=== PATIENT | female | born 1990 | race Caucasian/White ===

== ENCOUNTER 2019-06-11 | Observation (INO) ==
--- NOTE | 2019-06-11 00:43 | OB/GYN Progress Note ---
Date of Encounter: 06/11/19 Time of Encounter: 00:11 - Assessment and Plan (1) 37 weeks gestation of Current Visit: Yes Status: Acute Pt presents with c/o pelvic pain and pressure with some occ uc's. No vb or lof. (2) Pelvic pain affecting Current Visit: Yes Status: Acute Qualifiers: Trimester: third trimester Qualified Code(s): O26.893 - Other specified related conditions, third trimester; R10.2 - Pelvic and perineal pain (3) Gestational diabetes Current Visit: No Status: Acute good control Qualifiers: Gestational diabetes mellitus control: diet-controlled Trimester: third trimester Qualified Code(s): O24.410 - Gestational diabetes mellitus in , diet controlled Subjective - Subjective Principal diagnosis: pelvic pressure at 37w3d, gestational diabetes Interval history: 29 yo female at 37w3d presents with progressively worsening abdominal pain and pressure today. No VB or LOF. has been complicated by gestational DM and she has had good control. Today she reports she has drank some decaf fluids and has eaten alot of ice. Objective - Exam FHR: category 1 Auscultation: bilateral: normal Abdomen: Present: gravid Uterus: Present: normal Cervical dilation: 1-2 Cervix effacement: 60 station: -3
[2019-06-11 01:26] LABS: Bilirubin,Urine Negative (Negative); Blood,Urine Negative (Negative); Clarity,Urine Clear (Clear); Color,Urine Yellow (Yellow); Glucose,Urine (UA) Normal (Normal); Ketones,Urine Negative (Negative); Leukocyte Esterase,Urine Negative (Negative); Nitrite,Urine Negative (Negative); Protein,Urine Negative (Neg-Trace); Specific Gravity,Urine 1.027 (1.010-1.025); Urobilinogen,Urine Normal (Normal)
== END 2019-06-11 03:35 | disposition home or self-care (01) ==
LOC: 1NENULAB
PROVIDERS: ADMIT Obstetrics & Gynecology; ATTEND Obstetrics & Gynecology

== ENCOUNTER 2019-06-23 20:32 | Inpatient (IN) ==
[2019-06-23 18:36] LABS: Basophils % 0.3 %; Eosinophils # 0.1 K/mcL (0.0-0.6); Eosinophils % 1.2 %; Hematocrit 35.2 % (35.3-44.9); Hemoglobin 12.1 g/dL (11.5-15.4); Immature Granulocytes % 0.4 % (0-4); Lymphocytes # 1.5 K/mcL (0.6-4.6); Lymphocytes % 13.6 %; Mean Corpuscular HGB Conc 34.4 g/dL (31.6-35.5); Mean Corpuscular Hemoglobin 29.4 pg (28.0-33.3); Mean Corpuscular Volume 85.6 fL (83.0-100.0); Mean Platelet Volume 11.3 fL (9.4-12.4); Monocytes # 0.9 K/mcL (0.0-1.3); Neutrophils # 8.4 K/mcL (1.6-8.9); Platelet Count 268 K/mcL (140-400); Protein/Creatinine Ratio,Urine 0.32 mg/mg (0.00-0.20); Red Blood Count 4.11 M/mcL (3.82-4.97); Red Cell Distribution Width 13.9 % (11.5-14.5); Segmented Neutrophils % 76.5 %
[2019-06-23 18:46] LABS: Alanine Aminotransferase 10 Units/L (7-52); Amphetamine Screen,Urine Negative ng/mL (Cutoff=1000); Aspartate Amino Transferase 11 Units/L (13-39); BUN/Creatinine Ratio 16 (6-26); Barbiturate Screen,Urine Positive ng/mL (Cutoff=200); Benzodiazepines Screen,Urine Positive ng/mL (Cutoff=200); Blood Urea Nitrogen 8 mg/dL (6-20); Cannabinoid Screen,Urine Negative ng/mL (Cutoff = 50); Cocaine Screen,Urine Negative ng/mL (Cutoff= 300); Lactate Dehydrogenase 142 Units/L (140-271); Opiate Screen,Urine Negative ng/mL (Cutoff=300); Phencyclidine Screen,Urine Negative ng/mL (Cutoff=25); Uric Acid 4.9 mg/dL (2.3-7.6); eGFR For African Americans > 60 (> 60); eGFR For Non-African Americans > 60 (> 60)
--- NOTE | 2019-06-23 20:18 | Anesthesia Evaluation PreOp ---
Date of Encounter: 06/23/19 Time of Encounter: 19:38 - Past History Planned Operation: Del, 39wks pre-eclamptic Cardiac History: HTN (previous mag requirement, current bp was 190/103.) Pulmonary History: Denies Any Significant HX CONTRACTING EXECUTIVE History: Other (chronic back pain occ with bilateral radiculopathy down to feet, not dependent in nature and no weakness reported, happens with each .) Other Medical History: Other (BMI 47, anxiety,) Anesthesia History: No Prior Anesthetic Complications, Past Anesthesia (had 2 epidurals one worked, one did not, one del without, pt unsure this time. no other previous issues reported.) Alcohol Use: none Drug use: none Medications and Allergies Buspar 15 mg PO DAILY 01/01/18 [History] Diazepam 5 mg PO DAILY PRN 01/01/18 [History] Zoloft 250 mg PO DAILY 01/01/18 [History] Acetaminophen [Tylenol] 500 mg PO Q6HR PRN #20 tablet 02/09/19 [Rx] Metformin HCl [Fortamet] 1 tab PO BID 06/23/19 [History] Allergy/AdvReac Type Severity Reaction Status Date / Time Amoxicillin [From Amoxil] Allergy Anaphylaxis Verified 06/23/19 18:14 lamotrigine [From Lamictal] Allergy Rash Verified 06/23/19 18:14 Penicillins [PCN] Allergy Anaphylaxis Verified 06/23/19 18:14 cephalexin [From Keflex] AdvReac Rash Verified 06/23/19 18:14 Anesthesia Results - Labs 06/23/19 18:05 06/23/19 18:05 Anesthesia Exam - HEENT Pupil (Motor): Pupils equal Mallampati: III Teeth: Normal Oral Opening: Greater than 3 - CONTRACTING EXECUTIVE LOC: Oriented CONTRACTING EXECUTIVE Motor: Normal RUE, Normal LUE, Normal RLE, Normal LLE, Normal Face CONTRACTING EXECUTIVE Sensory: Normal: RUE, LUE, RLE, LLE, Face - Cardiac Rhythm: Regular Murmur: None - Pulmonary Breath Sounds: bilateral Clear Respiratory Effort: Symmetrical Anesthesia Assess/Plan ASA Score: 3 Level of consciousness: Cooperative, Oriented Anesthetic Plan: General, Spinal, Epidural Monitoring Plan: Standard Monitors Recovery Plan: PACU
[~2019-06-23 20:32] MED LIST: *HR* Nalbuphine 10 MG/ML AMPUL IVP PRN; Epidural Premix (fent/bupiv) 110 ML EP SCH; Famotidine 20 MG/2 ML VIAL IVP PRN; Lidocaine -MPF 1% 2 ML VIAL ONE; Lidocaine 1% 20 ML MDV INFILT PRN; Metoclopramide 10 MG/2 ML VIAL IVP PRN; Naloxone 0.4 MG/ML INJ IVP PRN; Ondansetron 4 MG/2 ML VIAL IVP PRN; miSOPROStol 25 MCG TABLET VG PRN
[2019-06-23] MEDS ORDERED: Ringers Solution, Lactated 1,000 ML IVC SCH (20:45)
--- NOTE | 2019-06-23 21:00 | OB/GYN History & Physical ---
Date of Encounter: 06/23/19 Time of Encounter: 20:53 Assessment and Plan (1) 39 weeks gestation of Current visit: Yes Status: Acute Admit for IOL GBS negative Cytotec and Intracervical Ivy May have nubain/epidural upon request Consider pitocin/arom Anticipate vaginal delivery POC per consult with Dr Weems (2) Pre-eclampsia Current visit: Yes Status: Acute Qualifiers: Trimester: third trimester Qualified Code(s): O14.93 - Unspecified pre- eclampsia, third trimester History of Present Illness Chief complaint: Pre-Eclampsia Induction HPI: Ms. Dash is a 29 year old female at 39 week sand 1 day that presents to triage from the office for a pre-eclampsia evaluation. Labs were normal except for UPC ratio which is elevated. Blood pressures have been elevated in triage also. Patient states she has anxiety and is currently on medication for it. She states her second delivery was complicated by a retained placenta which was removed at the bedside and she lost a lot of blood. She states positive movement. She c/o a headache for 2 days, a 5-6# weight gain over a one week period, and proteinuria. She is a gestational diabetic and is well controlled on metformin BID. Labs: GBS Negative Blood type O+ Hep B NR HIV NR RPR NR Rubella positive Varicella positive Past Med Surg Social Fam HX - Past Medical History Medical history: no medical history Additional medical history: depression Psychiatric history: anxiety, depression, panic disorder, other - Past Surgical History Surgical History: non-contributory, other Additional surgical history: wisdom teeth, tonsils and adenoids, left acl reconstruction - Social History Smoking Status: Former smoker Smokeless Tobacco Status: Yes Alcohol use: none Drug use: none - Family History Mother Adopted: No Family Member Ethnicity: Non- Living Status: Hx Family Cardiac Disorders: No Hx Family Respiratory Disorders: No Hx Family Cancer: Yes (breast cancer) Hx Family GI Disorders: No Hx Family Endocrine Disorder: No Hx Family Neuromuscular Disorders: No Hx Family Neurologic Disorders: No Hx Family HEENT Disorders: No Hx Family Autoimmune Disorders: No Obstetrical History - Pregnancies : 4 Para: 3 Term: 3 : 0 Ab's: 0 Livin Medications and Allergies Buspar 15 mg PO DAILY 01/01/18 [History] Diazepam 5 mg PO DAILY PRN 01/01/18 [History] Zoloft 250 mg PO DAILY 01/01/18 [History] Acetaminophen [Tylenol] 500 mg PO Q6HR PRN #20 tablet 02/09/19 [Rx] Metformin HCl [Fortamet] 1 tab PO BID 06/23/19 [History] Allergy/AdvReac Type Severity Reaction Status Date / Time Amoxicillin [From Amoxil] Allergy Anaphylaxis Verified 06/23/19 18:14 lamotrigine [From Lamictal] Allergy Rash Verified 06/23/19 18:14 Penicillins [PCN] Allergy Anaphylaxis Verified 06/23/19 18:14 cephalexin [From Keflex] AdvReac Rash Verified 06/23/19 18:14 Review of System OB All systems PM: reviewed and no additional remarkable complaints except as stated Exam - Constitutional Constitutional: well developed, well nourished, no acute distress, obese - HEENT HEENT: Normocephaly, Mucus Membranes Moist - Neck Neck exam: full ROM - Lungs Respiratory exam: CTAB - Cardiovascular Cardiovascular exam: RRR, +S1, +S2 - Breasts Breast: bilateral: normal - Abdomen Abdomen: Present: bowel sounds normal, gravid, non tender - Extremities Extremities exam: normal capillary refill, normal inspection, radial pulses palpable and symmetrical Deep Tendon Reflex Grade: 2+ Normal - Vagina Vagina: Present: normal moisture - Cervix Dilation: 1 (1-2) Effacement: 60 Station: -2 Results Result Diagrams: 06/23/19 18:05 06/23/19 18:05 Abnormal lab results Hct 35.2 % (35.3-44.9) L 06/23/19 18:05 Creatinine 0.51 mg/dL (0.60-1.20) L 06/23/19 18:05 AST 11 Units/L (13-39) L 06/23/19 18:05 Protein/Creatinin Ratio 0.32 mg/mg (0.00-0.20) H 06/23/19 18:05 Urine Total Protein 20 mg/dL (1-14) H 06/23/19 18:05 Ur Barbiturates Screen Positive ng/mL (Dmezuf=648) H 06/23/19 18:05 U Benzodiazepines Scrn Positive ng/mL (Ewblen=593) H 06/23/19 18:05 All other labs normal. - VTE Reasons for not Prescribing Prophylaxis: Treatment not Indicated - Low risk for VTE
[2019-06-23] MEDS ORDERED: Acetaminophen 325 MG TABLET PO ONE (21:51)
--- NOTE | 2019-06-23 22:16 | OB Labor Progress Note ---
Date of Encounter: 06/23/19 Time of Encounter: 22:13 Labor Progress Note - Subjective Subjective: Patient is comfortable in bed but is very anxious about intracervical merritt placement. Accepts premedication with nubain prior to placement - Vital Signs Vital Signs: VSS - Cervix Cervix: 1-2/70/-2 - Heart Tones Heart Tones: 140 moderate variability with 15 x 15 accels and no decels - Shubuta Shubuta: Contractions every 4 minutes, palpate mild - Interventions Interventions: Cooks catheter placed without difficulty 60u 40v. Fetus and patient tolerated well. - Plan Plan: Continue routine labor management GBS negative Consider pitocin vs AROM after intracervical merritt displacement Anticipate vaginal delivery POC per consult with Dr Weems
[2019-06-24] MEDS ORDERED: Ondansetron 4 MG/2 ML VIAL ONE (03:28)
[2019-06-24] MEDS ORDERED: Gentamicin 430 MG in 0.9 % Sodium Chloride 100 ML IVPB ONE (03:33)
[2019-06-24] MEDS ORDERED: Clindamycin 900 MG/50 ML 900 MG/50 ML IV.SOLN IVPB ONE (03:33)
[2019-06-24] MEDS ORDERED: *HR* FentaNYL (PF) 100 MCG/2 ML VIAL ONE (03:37)
[2019-06-24] MEDS ORDERED: *HR* Morphine Sulfate/PF 10 MG/10 ML AMPUL ONE (03:37)
[2019-06-24] MEDS ORDERED: *HR* Midazolam HCl 2 MG/2 ML VIAL ONE (03:37)
[2019-06-24] MEDS ORDERED: EPHEDrine 50 MG/ML VIAL ONE (03:38)
[2019-06-24] MEDS ORDERED: Ringers Solution, Lactated 1,000 ML ONE ×2 (03:38→04:45)
[2019-06-24] MEDS ORDERED: *HR* Phenylephrine 10 MG/ML VIAL ONE (03:43)
[2019-06-24] MEDS ORDERED: *HR* Oxytocin 10 UNIT/ML VIAL IM ONE (03:44)
[2019-06-24] MEDS ORDERED: Azithromycin 500 MG in 0.9 % Sodium Chloride 250 ML IVPB ONE (03:57)
--- NOTE | 2019-06-24 04:21 | Event Note ---
Date of Encounter: 06/24/19 Time of Encounter: 03:30 Called to patient's room for cervical exam and AROM for internals due to difficulty tracing fetus. Unable to palpate presenting part upon cervical exam. Bedside ultrasound brought into room. Fetus transverse back up per Dr Weems. Care assumed by Dr Weems for unscheduled section.
--- NOTE | 2019-06-24 05:32 | OB/GYN Procedure Note ---
Section - Date of procedure: 06/24/19 Preop diagnosis: other (transverse lie) Post-op diagnosis: same Procedure: primary low transverse Surgeon: Freddy Maciel Blood Loss: 500 Was there an traffic assistant present: Yes Fluorescent Lamp Replacer: Sonja Durham Anesthesiologist: Loni Mancini Cotton Dispatcher: Lb Almendarez Anesthesia Type: Spinal section complications: none Disposition: L&D Recovery Room Specimens: Placenta, Cord segment, Cord blood - (s) A Delivery Date: 06/24/19 Infant Delivery Time: 04:42 Presentation: transverse lie Gender: Male Gram Weight: 3.895 kg at 1 minute: 7 at 5 minutes: 8 Shoulder Dystocia: not encountered - Narrative Narrative: The patient was taken to the operating room where spinal anesthesia was found to be adequate. The patient was prepped and draped in the usual sterile fashion in the dorsal supine position with a left-almendarez tilt. A Pfannenstiel skin incision was made with the scalpel and carried through to the underlying layer of fascia. The fascia was incised in the midline and extended laterally and bluntly. Stefan clamps were used to elevate the superior aspect of the fascial incision, which was elevated, and the underlying rectus muscles were dissected off bluntly and using Smith scissors. Attention was then turned to the inferior aspect of the fascial incision, which in similar fashion was grasped with Stefan clamps, elevated, and the underlying rectus muscles were dissected off bluntly. The rectus muscles were dissected in the midline. The peritoneum was bluntly dissected, entered, and extended superiorly and inferiorly with good visualization of the bladder. The bladder blade was inserted. The vesicouterine peritoneum was identified with pickups and entered sharply using Metzenbaum scissors. This incision was extended laterally and the bladder flap was created digitally. The bladder blade was reinserted. The lower uterine segment was incised in a transverse fashion using the scalpel and extended using manual traction. Meconium-stained fluid was noted. The infant was subsequently delivered atraumatically. There was a tight nuchal cord 1 that was released easily. The nose and mouth were bulb suctioned. The cord was clamped and cut. The was subsequently handed to the awaiting nursery nurse. The placenta was removed spontaneously intact with a 3-vessel cord noted. The uterus was exteriorized and cleared of all clots and debris. The uterine incision was repaired in 2 layers using 0 Vicryl suture. Hemostasis was visualized. The uterus was returned to the abdomen. The uterine incision was reexamined and was noted to be hemostatic. The fascia was closed with 0 Vicryl, the subcutaneous layer was closed with 3-0 Vicryl and the skin was closed with parvez. Sponge, lap, and instrument counts were correct x2. The patient was stable at the completion of the procedure and was subsequently transferred to the recovery room in stable condition.
[2019-06-24] MEDS ORDERED: *HR* Promethazine 25 MG/ML VIAL ONE (05:39)
--- NOTE | 2019-06-24 06:21 | Anesthesia Evaluation Post Op ---
Date of Encounter: 06/24/19 Time of Encounter: 06:21 - Vital Signs Vital Signs: vss - Lungs Lungs: Clear Ascult./Percussion - Airway Airway: Non-obstructed - Mental Status Mental Status: Alert & Oriented, Answers Appropriately - Pain Pain Scale used: Menon-Monteiro (Faces) (tolerable) - Nausea Vomiting Nausea Vomiting: Not Present (recent tx) - Hydration Hydration: Ivy catheter - Discharge PostOp Status: Transfer Patient to floor (once criteria met)
[2019-06-24] MEDS ORDERED: Ondansetron 4 MG/2 ML VIAL IVP PRN (08:05)
[2019-06-24] MEDS ORDERED: Rho Immune Globulin 1,500 UNIT SYRINGE IM ONE (08:05)
[2019-06-24] MEDS ORDERED: Sennosides 8.6 MG TABLET PO PRN (08:05)
[2019-06-24] MEDS ORDERED: Metoclopramide 10 MG/2 ML VIAL IVP PRN (08:05)
[2019-06-24] MEDS ORDERED: diazePAM 5 MG TABLET PO PRN (08:05)
[2019-06-24] MEDS ORDERED: Simethicone 80 MG TAB.CHEW PO PRN (08:05)
[2019-06-24] MEDS: *HR* OxyCODONE/APAP 5/325 TABLET PO PRN ×2 (08:50→14:34)
[2019-06-24] MEDS: Oxytocin 20 units/ LR 1000 mL 20 UNIT/1,000 ML BAG IVC SCH ×2 (11:19→19:45)
[2019-06-24] MEDS: Prenatal Vit/FA 1 EACH TABLET PO SCH (11:20)
[2019-06-24] MEDS ORDERED: 0.9 % Sodium Chloride 500 ML ONE (14:46)
[2019-06-24] MEDS: Ibuprofen 600 MG TABLET PO PRN ×2 (15:05→20:29)
[2019-06-24] MEDS: *HR* Metformin 500 MG TABLET PO SCH (18:22)
[2019-06-25] MEDS: *HR* OxyCODONE/APAP 5/325 TABLET PO PRN ×2 (02:43→08:58)
[2019-06-25 08:28] LABS: Basophils % 0.2 %; Eosinophils # 0.1 K/mcL (0.0-0.6); Eosinophils % 0.7 %; Immature Granulocytes % 0.5 % (0-4); Lymphocytes # 0.9 K/mcL (0.6-4.6); Lymphocytes % 8.4 %; Mean Corpuscular HGB Conc 33.5 g/dL (31.6-35.5); Mean Corpuscular Hemoglobin 29.7 pg (28.0-33.3); Mean Corpuscular Volume 88.7 fL (83.0-100.0); Mean Platelet Volume 10.3 fL (9.4-12.4); Monocytes # 0.8 K/mcL (0.0-1.3); Monocytes % 6.8 %; Neutrophils # 9.3 K/mcL (1.6-8.9); Platelet Count 178 K/mcL (140-400); Red Blood Count 2.93 M/mcL (3.82-4.97); Red Cell Distribution Width 14.1 % (11.5-14.5); Segmented Neutrophils % 83.4 %; White Blood Count 11.2 K/mcL (4.3-11.1)
[2019-06-25 08:31] LABS: Hemoglobin 8.7 g/dL (11.5-15.4)
[2019-06-25] MEDS: Ibuprofen 600 MG TABLET PO PRN ×3 (08:57→23:27)
[2019-06-25] MEDS: Prenatal Vit/FA 1 EACH TABLET PO SCH (08:58)
--- NOTE | 2019-06-25 13:26 | OB/GYN Progress Note ---
Date of Encounter: 06/25/19 Time of Encounter: 13:23 - Assessment and Plan (1) Status post delivery Current Visit: Yes Status: Acute Patient meeting day one milestones. Pain well-controlled with prescribed medications. Voiding without difficulty, tolerating regular diet, bleeding light. No bowel movement yet. Anticipate discharge today. (2) Gestational diabetes Current Visit: Yes Status: Acute Follow up in 4-12 weeks for 2-hr GTT Qualifiers: Gestational diabetes mellitus control: diet-controlled Trimester: third trimester Qualified Code(s): O24.410 - Gestational diabetes mellitus in , diet controlled (3) Breast feeding status of mother Current Visit: No Status: Acute support prn (4) Acute blood loss anemia Current Visit: Yes Status: Acute Increase iron to twice daily Subjective - Subjective Principal diagnosis: Status post Interval history: Date of procedure: 06/24/19 Preop diagnosis: other (transverse lie) Post-op diagnosis: same Procedure: primary low transverse Surgeon: Freddy Maciel Blood Loss: 500 Was there an pest controller assistant present: Yes Pellet Preparation Operator: Sonja Durham Anesthesiologist: Loni Mancini Meal Grinder Tender: Lb Almendarez Anesthesia Type: Spinal section complications: none Disposition: L&D Recovery Room Specimens: Placenta, Cord segment, Cord blood - Infant (s) A Delivery Date: 06/24/19 Delivery Time: 04:42 Presentation: transverse lie Gender: Male Gram Weight: 3.895 kg at 1 minute: 7 at 5 minutes: 8 Shoulder Dystocia: not encountered - Narrative Narrative: The patient was taken to the operating room where spinal anesthesia was found to be adequate. The patient was prepped and draped in the usual sterile fashion in the dorsal supine position with a left-almendarez tilt. A Pfannenstiel skin incision was made with the scalpel and carried through to the underlying layer of fascia. The fascia was incised in the midline and extended laterally and bluntly. Stefan clamps were used to elevate the superior aspect of the fascial incision, which was elevated, and the underlying rectus muscles were dissected off bluntly and using Smith scissors. Attention was then turned to the inferior aspect of the fascial incision, which in similar fashion was grasped with Stefan clamps, elevated, and the underlying rectus muscles were dissected off bluntly. The rectus muscles were dissected in the midline. The peritoneum was bluntly dissected, entered, and extended superiorly and inferiorly with good visualization of the bladder. The bladder blade was inserted. The vesicouterine peritoneum was identified with pickups and entered sharply using Metzenbaum scissors. This incision was extended laterally and the bladder flap was created digitally. The bladder blade was reinserted. The lower uterine segment was incised in a transverse fashion using the scalpel and extended using manual traction. Meconium-stained fluid was noted. The infant w as subsequently delivered atraumatically. There was a tight nuchal cord 1 that was released easily. The nose and mouth were bulb suctioned. The cord was clamped and cut. The was subsequently handed to the awaiting nursery nurse. The placenta was removed spontaneously intact with a 3-vessel cord noted. The uterus was exteriorized and cleared of all clots and debris. The uterine incision was repaired in 2 layers using 0 Vicryl suture. Hemostasis was visualized. The uterus was returned to the abdomen. The uterine incision was reexamined and was noted to be hemostatic. The fascia was closed with 0 Vicryl, the subcutaneous layer was closed with 3-0 Vicryl and the skin was closed with parvez. Sponge, lap, and instrument counts were correct x2. The patient was stable at the completion of the procedure and was subsequently transferred to the recovery room in stable condition. Patient reports: appetite normal, voiding normally, pain well controlled, ambulating normally : doing well, nursing well Objective - Vital Signs Latest vital signs: Vital Signs Temp Pulse Resp BP Pulse Ox 06/25/19 07:45 98.2 F 104 16 121/85 98 06/25/19 04:00 98.3 F 109 16 113/68 99 06/25/19 00:15 98.6 F 108 16 133/79 98 06/24/19 22:20 98.3 F 104 16 113/75 99 06/24/19 20:15 100.0 F H 112 16 133/84 98 06/24/19 14:59 98.6 F 90 18 120/77 97 Intake and Output 06/24/19 06/25/19 06/25/19 23:59 07:59 15:59 Intake Total 1400 / 2200 1400 / 1400 Output Total 550 / 750 300 / 300 Balance 850 / 1450 1100 / 1100 Intake: IV Fluids 1000 / 1000 Pitocin 20 unit In 1,000 ml @ 1000 / 1000 125 mls/hr IVC .Q8H [facility] Rx#: [id number] Oral 400 / 1200 800 / 800 Other 600 / 600 Output: Urine 200 / 200 300 / 300 Catheter 350 / 550 Other: Weight 127.278 kg Blood Glucose* 198 Patient Weight 06/25/19 23:59 Weight 127.278 kg - Exam Lungs: bilateral: normal Chest: Normal S1, Normal S2 Extremities: Present: normal Abdomen: Present: normal appearance, soft. Absent: distention, tenderness Incision: Present: normal, dry, intact (steri strips) Uterus: Present: normal, firm Fundal Height: 0 (@U) - Labs Labs: Laboratory Results - last 24 hr 06/24/19 06/25/19 18:22 08:07 WBC 11.2 H RBC 2.93 L Hgb 8.7 L D Hct 26.0 L MCV 88.7 MCH 29.7 MCHC 33.5 RDW 14.1 Plt Count 178 MPV 10.3 Immature Gran % 0.5 Seg Neutrophils % 83.4 Lymphocytes % 8.4 Monocytes % 6.8 Eosinophils % 0.7 Basophils % 0.2 Neutrophils # 9.3 H Lymphocytes # 0.9 Monocytes # 0.8 Eosinophils # 0.1 Basophils # 0.0 POC Glucose 198 H
[2019-06-25] MEDS ORDERED: *HR* OxyCODONE/APAP 5/325 TABLET PO PRN (13:29)
[2019-06-25] MEDS: *HR* Metformin 500 MG TABLET PO SCH (16:51)
[2019-06-26] MEDS: *HR* OxyCODONE/APAP 5/325 TABLET PO PRN ×2 (01:29→09:11)
[2019-06-26 08:16] VITALS: BP 137/79
[2019-06-26] MEDS: *HR* Metformin 500 MG TABLET PO SCH (08:18)
[2019-06-26] MEDS: Prenatal Vit/FA 1 EACH TABLET PO SCH (08:18)
[2019-06-26] MEDS: Ibuprofen 600 MG TABLET PO PRN (08:19)
--- NOTE | 2019-06-26 09:35 | Discharge Summary ---
Date of Encounter: 06/26/19 Time of Encounter: 09:35 - Discharge Diagnosis (1) delivery delivered Priority: Primary Status: Acute Comments: S/P Delivery Day 2. Pain is well controlled Lochia is light and without clots Tolerating regular diet, passing flatus Voiding without difficulty Breast feeding Discharge home today POC per consult with Dr Love (2) Pre-eclampsia Priority: Secondary Status: Acute Comments: Vital signs stable, asymptomatic Qualifiers: Trimester: third trimester Qualified Code(s): O14.93 - Unspecified pre- eclampsia, third trimester (3) Gestational diabetes Priority: Secondary Status: Acute Comments: Blood sugars stable, elevated pp r/t diet choices. Discharge home with metformin as ordered 2 hour fasting GTT due at pp visit. Qualifiers: Gestational diabetes mellitus control: oral hypoglycemic-controlled Trimester: third trimester Qualified Code(s): O24.415 - Gestational diabetes mellitus in , controlled by oral hypoglycemic drugs - Discharge Medications Prescriptions: New Breast Pump [BREAST PUMP] 1 each .ROUTE AD #1 each Docusate [Colace] 100 mg PO BID #30 capsule Ferrous Sulfate 325 mg PO BIDWM #180 tablet Simethicone [Gas-X] 80 mg PO TID PRN tab.chew PRN Reason: Dyspepsia Ibuprofen [Motrin] 600 mg PO Q6HR PRN #30 tablet PRN Reason: Cramping OxyCODONE/APAP 5/325 [Percocet 5/325 MG] 1 each PO Q6H PRN 5 Days #20 tablet PRN Reason: Moderate pain 4-6 Continued Zoloft 250 mg PO DAILY Diazepam 5 mg PO DAILY PRN PRN Reason: Anxiety Buspar 15 mg PO DAILY Acetaminophen [Tylenol] 500 mg PO Q6HR PRN #20 tablet PRN Reason: Pain Metformin HCl [Fortamet] 1 tab PO BID Home Medications: Buspar 15 mg PO DAILY 01/01/18 [History] Diazepam 5 mg PO DAILY PRN 01/01/18 [History] Zoloft 250 mg PO DAILY 01/01/18 [History] Acetaminophen [Tylenol] 500 mg PO Q6HR PRN #20 tablet 02/09/19 [Rx] Metformin HCl [Fortamet] 1 tab PO BID 06/23/19 [History] Breast Pump [BREAST PUMP] 1 each .ROUTE AD #1 each 06/26/19 [Rx] Docusate [Colace] 100 mg PO BID #30 capsule 06/26/19 [Rx] Ferrous Sulfate 325 mg PO BIDWM #180 tablet 06/26/19 [Rx] Ibuprofen [Motrin] 600 mg PO Q6HR PRN #30 tablet 06/26/19 [Rx] OxyCODONE/APAP 5/325 [Percocet 5/325 MG] 1 each PO Q6H PRN 5 Days #20 tablet 06/26/19 [Rx] Simethicone [Gas-X] 80 mg PO TID PRN tab.chew 06/26/19 [Rx] Allergies/Adverse Reactions: Allergy/AdvReac Type Severity Reaction Status Date / Time Amoxicillin [From Amoxil] Allergy Anaphylaxis Verified 06/23/19 18:14 lamotrigine [From Lamictal] Allergy Rash Verified 06/23/19 18:14 Penicillins [PCN] Allergy Anaphylaxis Verified 06/23/19 18:14 cephalexin [From Keflex] AdvReac Rash Verified 06/23/19 18:14 Data Procedures and tests throughout hospitalization: Laboratory Tests 06/23/19 06/23/19 06/23/19 18:05 18:05 18:05 WBC 11.0 RBC 4.11 Hgb 12.1 Hct 35.2 L MCV 85.6 MCH 29.4 MCHC 34.4 RDW 13.9 Plt Count 268 MPV 11.3 Immature Gran % 0.4 Seg Neutrophils % 76.5 Lymphocytes % 13.6 Monocytes % 8.0 Eosinophils % 1.2 Basophils % 0.3 Neutrophils # 8.4 Lymphocytes # 1.5 Monocytes # 0.9 Eosinophils # 0.1 Basophils # 0.0 BUN Creatinine Est GFR ( Amer) Est GFR (Non-Af Amer) BUN/Creatinine Ratio POC Glucose Uric Acid AST ALT Lactate Dehydrogenase Urine Creatinine 62 Protein/Creatinin Ratio 0.32 H Urine Total Protein 20 H Urine Opiates Screen Negative Ur Buprenorphine Scrn Negative Ur Barbiturates Screen Positive H Ur Phencyclidine Scrn Negative Ur Amphetamines Screen Negative U Benzodiazepines Scrn Positive H Urine Cocaine Screen Negative U Marijuana (THC) Screen Negative Ur Drug Screen Interp See Below 06/23/19 06/24/19 06/25/19 18:05 18:22 08:07 WBC 11.2 H RBC 2.93 L Hgb 8.7 L D Hct 26.0 L MCV 88.7 MCH 29.7 MCHC 33.5 RDW 14.1 Plt Count 178 MPV 10.3 Immature Gran % 0.5 Seg Neutrophils % 83.4 Lymphocytes % 8.4 Monocytes % 6.8 Eosinophils % 0.7 Basophils % 0.2 Neutrophils # 9.3 H Lymphocytes # 0.9 Monocytes # 0.8 Eosinophils # 0.1 Basophils # 0.0 BUN 8 Creatinine 0.51 L Est GFR ( Amer) > 60 Est GFR (Non-Af Amer) > 60 BUN/Creatinine Ratio 16 POC Glucose 198 H Uric Acid 4.9 AST 11 L ALT 10 Lactate Dehydrogenase 142 Urine Creatinine Protein/Creatinin Ratio Urine Total Protein Urine Opiates Screen Ur Buprenorphine Scrn Ur Barbiturates Screen Ur Phencyclidine Scrn Ur Amphetamines Screen U Benzodiazepines Scrn Urine Cocaine Screen U Marijuana (THC) Screen Ur Drug Screen Inter 06/25/19 06/25/19 06/25/19 14:06 18:05 23:27 WBC RBC Hgb Hct MCV MCH MCHC RDW Plt Count MPV Immature Gran % Seg Neutrophils % Lymphocytes % Monocytes % Eosinophils % Basophils % Neutrophils # Lymphocytes # Monocytes # Eosinophils # Basophils # BUN Creatinine Est GFR ( Amer) Est GFR (Non-Af Amer) BUN/Creatinine Ratio POC Glucose 103 H 219 H 81 Uric Acid AST ALT Lactate Dehydrogenase Urine Creatinine Protein/Creatinin Ratio Urine Total Protein Urine Opiates Screen Ur Buprenorphine Scrn Ur Barbiturates Screen Ur Phencyclidine Scrn Ur Amphetamines Screen U Benzodiazepines Scrn Urine Cocaine Screen U Marijuana (THC) Screen Ur Drug Screen Inter Labs on day of discharge: Labs from last 24 hours 06/25/19 06/25/19 06/25/19 23:27 18:05 14:06 POC Glucose 81 219 H 103 H Date of admission: 06/23/19 20:32 Consults: 06/26/19 09:14 Consult to [employer] Agent ([facility]) [CONS] Routine Reason For Exam: Reason for SW Consult: History of severe anxiety and PTSD. On multiple anxiety medications. Has history of ETOH and MJ prior to prenatals due to anxiety Discharging clinician: Oralia Harry Anticipated date of discharge: 06/26/19 - Patient Status Disposition: Home, Self-Care Condition: Good Functional capacity at discharge: independent ambulation Overall status at discharge: patient is progressing back to baseline - Discharge Instructions Follow Up With: Jordan Belle MD [Partnered Physician] - - Diet and Activity Activity: increase activity as tolerated Diet: regular diet Hospital Course Reason for admission: induction of labor, IUP at term, pre-eclampsia Delivery: section Episiotomy: none Laceration: none Other procedures: none complications: none Discharge diagnosis: IUP at term delivered baby: male Time Attestation: Total time spent providing and/or coordinating discharge services: Time Spent: Less than 30 minutes - VTE Reasons for not Prescribing Prophylaxis: Treatment not Indicated - Low risk for VTE Documentation of Mechanical Device: Intermittent pneumatic compression device Exam - Constitutional Vitals: Temp Pulse Resp BP Pulse Ox 98.2 F 92 16 137/79 99 06/26/19 08:15 06/26/19 08:15 06/26/19 08:15 06/26/19 08:15 06/25/19 23:25 General appearance IM: cooperative, A&O X 3, pleasant - Respiratory Respiratory exam: Present: CTAB - Cardiovascular Cardiovascular exam IM: Present: RRR, +S1, +S2 - GI/Abdominal GI/Abdominal exam IM: normal bowel sounds, soft Incision: normal, dry, intact - Uterine Tone: Firm Uterus Position: 2 Fingers Below Umbilicus, Midline - Extremities Exam Extremities exam IM: Present: normal capillary refill, normal inspection, radial pulses palpable and symmetrical - Neurological Exam Neurological exam: alert, oriented X3, reflexes normal
== END 2019-06-26 14:30 | disposition home or self-care (01) | DRG 787 ==
LOC: 1NENULAB → 1NENUOBS 06-24 08:04
PROVIDERS: ADMIT Advanced Practice Midwife; ATTEND Advanced Practice Midwife